=== PATIENT | male | born 1995 | race African-American/Black ===

== ENCOUNTER 2025-02-19 10:34 | Emergency (ER) | payer MEDICAID ==
[~2025-02-19] VITALS: Ht 175.3 cm; Wt 78.0 kg
[2025-02-19 10:37] VITALS: O2SAT 100
[2025-02-19 10:42] VITALS: BP 122/74; PULSE 55; RESP 16; TEMP 37.2; O2SAT 100
[2025-02-19 10:57] LABS: BASOPHILS % 0.0 % (0.0-2.0); EOSINOPHILS % 0.0 % (0.0-5.0); HEMATOCRIT. 43.6 % (42.0-52.0); HEMOGLOBIN. 14.6 g/dL (14.0-18.0); LYMPHOCYTES % 9.7 % (20.0-50.0); MEAN PLATELET VOLUME 8.4 fl (7.4-10.4); MONOCYTES % 8.5 % (2.0-8.0); NEUTROPHILS % 81.8 % (40.0-76.0); PLATELET 338 x1000/uL (130-400); RED BLOOD CELL COUNT 5.15 mill/uL (4.7-6.1); RED CELL DISTRIBUTION WIDTH 13.3 % (11.6-14.6)
[2025-02-19 11:19] LABS: CREATININE 1.1 mg/dL (0.6-1.3); UREA NITROGEN BLOOD 11 mg/dL (9-23)
[2025-02-19 11:21] LABS: ASPARTATE AMINOTRANSFERASE 42 IU/L (<34); BILIRUBIN DIRECT 0.1 mg/dL (<=3.0); BILIRUBIN TOTAL 0.4 mg/dL (0.1-1.0); PROTEIN TOTAL 8.4 g/dL (6.0-8.3)
[2025-02-19] MEDS ORDERED: ONDA-239 PO (11:45)
[2025-02-19] MEDS: ONDANSETRON 4MG ODT PO ONE (11:50)
== END 2025-02-19 12:10 | disposition home or self-care (01) ==
LOC: ER 10:34
DX: R11.2 Nausea with vomiting, unspecified (principal)
CPT/HCPCS: 99283; 80076; 80048; 83690; 85025; 36415; Q0162